=== PATIENT | female | born 1995 | race Caucasian/White ===

== ENCOUNTER 2024-05-21 11:57 | Emergency (ER) | payer OTHER ==
[~2024-05-21] VITALS: Ht 157.5 cm; Wt 63.6 kg
[2024-05-21 12:14] VITALS: TEMP 98.5
[2024-05-21 14:19] LABS: BASO % 0.6 % (0.0-2.0); EOS # 0.1 K/mm3 (0.0-0.7); EOS % 1.4 % (0.0-4.0); GRAN # 4.5 K/mm3 (1.4-6.5); HEMATOCRIT 38.8 % (37.0-47.0); HEMOGLOBIN 13.8 g/dl (12.5-16.0); LYMPH # 1.9 K/mm3 (1.2-3.4); LYMPH % 26.7 % (20.0-51.0); MEAN CELL VOLUME 86 fl (80.0-100.0); MEAN CORPUSCULAR HEMOGLOBIN 31 pg (27-31); MEAN CORPUSCULAR HGB CONC 36 g/dl (33.0-37.0); MEAN PLATELET VOLUME 9.5 fl (7.4-10.4); MONO # 0.4 K/mm3 (0.1-0.6); MONO % 6.2 % (1.7-9.3); PLATELET COUNT 306 K/mm3 (130-400); RED BLOOD COUNT 4.52 M/mm3 (4.10-5.30); REDCELL DISTRIBUTION WIDTH-CV 12.7 % (11.5-14.5)
[2024-05-21 14:30] LABS: ALANINE AMINOTRANSFERASE 9 U/L (0-55); ALBUMIN 4.3 g/dL (3.5-5.0); ALKALINE PHOSPHATASE 57 U/L (40-150); ANION GAP 12 mmol/L (7-16); AST,SGOT 13 U/L (5-34); BILIRUBIN,TOTAL 0.6 mg/dL (0.2-1.2); BLOOD UREA NITROGEN 11 mg/dL (7-19); CALCIUM 9.4 mg/dL (8.4-10.2); CHLORIDE 109 mEq/L (98-107); CREATININE, serum 0.71 mg/dL (0.57-1.11); GLUCOSE 79 mg/dL (70-99); POTASSIUM 3.7 mEq/L (3.5-4.5); SODIUM 140 mEq/L (136-145); TOTAL PROTEIN 7.7 g/dl (6.2-8.1)
[2024-05-21 14:58] LABS: TROPONIN-I < 0.010 ng/mL (0.00-0.033)
[2024-05-21 16:06] VITALS: BP 105/70; PULSE 75
== END 2024-05-21 16:07 | disposition home or self-care (01) ==
LOC: COL.ER 11:57
PROVIDERS: Emergency Medicine
DX: R06.02 Shortness of breath (principal)